=== PATIENT | female | born 1985 | race African-American/Black ===

== ENCOUNTER → 2016-10-31 | Outpatient (CLI) | payer OTHER ==
[~2016-10-31] MED LIST: BACTRIM DS TABL1 TA2 PO; KEFLEX PO
--- NOTE | ~2016-10-31 | EKG ---
PATIENT: ROSA BUSH UNIT #: [id number] Ventricular Rate: 81 BPM Atrial Rate: 81 BPM P-R Interval: 182 ms QRS Duration: 72 ms Q-T Interval: 378 ms QTC Calculation(Bezet): 439 ms P [place]: 51 degrees Calculated R [place]: 53 degrees Calculated T [place]: 19 degrees Diagnosis Line: Normal sinus rhythm Diagnosis Line: Normal ECG Diagnosis Line: When compared with ECG of 12-NOV-2015 10:10, Diagnosis Line: No significant change was found Diagnosis Line: Confirmed by NATE ESTEVES MD ([id number]) on Diagnosis Line: 11/01/2016 1:29:24 PM INTERPRETING MD: DANIELITO EAGLE
== END | disposition home or self-care (01) ==
LOC: CEKG 12:09
DX: R07.89 Other chest pain (principal)
CPT/HCPCS: 93005

== ENCOUNTER → 2016-12-02 | Outpatient (CLI) | payer OTHER ==
--- NOTE | ~2016-12-02 | CR172 ---
[facility] A Service of [facility] & [facility] RADIOLOGY TEXT RESULTS PATIENT: ROSA BUSH LOCATION: [facility] : 87 UNIT #: [id number] AGE: [address]: BENITA MCCAULEY SEX: F ORDER DR: [id number] [facility] [address] [place], [place] [address] [id number] O MR#: [id number] Acc #: [id number] NAME: ROSA BUSH : 1985 SEX: F STUDY DATE/TIME: 12/02/2016 14:49 UNIT: [facility] ROOM: STUDY DESCRIPTION: CR Knee 3 Views Lt Attending Physician: Arlet Cortés Referring Physician: Arlet Cortés Ordering Physician: Arlet Cortés Primary Care Physician: Leanna Garcia M.D. MEDICAL IMAGING REPORT This report is preliminary unless electronic signature is present EXAM Left knee, 3 views. COMPARISON None. INDICATION 30-year-old female with left knee pain and swelling after twisting injury yesterday. FINDINGS Bones are anatomically aligned. No evidence of acute fracture or significant degenerative change. No suprapatellar effusion. IMPRESSION No acute fracture, dislocation or significant degenerative change of the knee. No suprapatellar effusion. Dictated by... Ti Anaya M.D. THIS IS AN ELECTRONICALLY VERIFIED REPORT Ti Anaya M.D. at 12/07/2016 12:09 PM Shelli TD: 12/02/2016 20:18 JOB #: [id number] MEDICAL IMAGING REPORT Page 1 of 1 COPY
--- NOTE | ~2016-12-02 | CR20 ---
[facility] A Service of [facility] & [facility] RADIOLOGY TEXT RESULTS PATIENT: ROSA BUSH LOCATION: [facility] : 87 UNIT #: [id number] AGE: [address]: BENITA MCCAULEY SEX: F ORDER DR: [id number] [facility] [address] [place], [place] [address] [id number] O MR#: [id number] Acc #: [id number] NAME: ROSA BUSH : 1985 SEX: F STUDY DATE/TIME: 12/02/2016 14:52 UNIT: [facility] ROOM: STUDY DESCRIPTION: CR Ankle Min 3 Views Lt Attending Physician: Arlet Cortés Referring Physician: Arlet Cortés Ordering Physician: Arlet Cortés Primary Care Physician: Leanna Garcia M.D. MEDICAL IMAGING REPORT This report is preliminary unless electronic signature is present EXAM Left ankle, 3 views. COMPARISON None. INDICATION 30-year-old female with left ankle pain and swelling since twisting the foot yesterday. FINDINGS There is mild enthesopathy at both poles of the calcaneal tubercle. Bones are anatomically aligned. No evidence of acute fracture. IMPRESSION 1. No acute fracture or dislocation of the left ankle. 2. Mild enthesopathy of the calcaneus. Dictated by... Ti Anaya M.D. THIS IS AN ELECTRONICALLY VERIFIED REPORT Ti Anaya M.D. at 12/07/2016 10:49 AM Shelli TD: 12/02/2016 20:25 JOB #: [id number] MEDICAL IMAGING REPORT Page 1 of 1 COPY
== END | disposition home or self-care (01) ==
LOC: CRAD 14:31
DX: M25.572 Pain in left ankle and joints of left foot (principal); M25.562 Pain in left knee; M77.32 Calcaneal spur, left foot
CPT/HCPCS: 73562; 73610